=== PATIENT | male | born 1975 | race Caucasian/White ===

== ENCOUNTER 2022-12-29 15:16 | Emergency (ER) | payer OTHER, MEDICAID, SELFPAY ==
[2022-12-29] VITALS (7 sets, daily range): BP systolic 154–177; BP diastolic 88–112; PULSE 70–81; RESP 15–26; TEMP 36.9; O2SAT 96–98; BMI 38.0
--- NOTE | 2022-12-29 15:45 | DI.RAD.S_ITS ---
PROCEDURE: XR CHEST 1V INDICATIONS: hypertension TECHNIQUE: One view of the chest was acquired. COMPARISON: None. FINDINGS: Surgical changes and devices: None. Lungs and pleura: Lungs are clear. No pleural effusions or pneumothorax. Mediastinum: Mediastinal contours appear normal. Heart size is normal. Bones and chest wall: No suspicious bony lesions. Overlying soft tissues appear unremarkable. IMPRESSION: Normal for age, source of current hypertension symptoms is not seen. Dictated by: Joey Lucia M.D. on 12/29/2022 at 16:45 Approved by: Joey Lucia M.D. on 12/29/2022 at 16:45
[2022-12-29 17:02] LABS: Add Manual Diff / Slide Review NO; Basophils Absolute Auto 100 /uL (0-100); Basophils Percent Auto 1.3 % (0-2); Eosinophils Absolute Auto 100 /uL (0-450); Hematocrit 41.8 % (41-53); Hemoglobin 14.6 g/dL (13.5-17.5); Lymphocytes Absolute Auto 1700 /uL (1100-4500); Lymphocytes Percent Auto 34.6 % (25-40); Mean Corpuscular HGB Conc 35.1 % (30-36); Mean Corpuscular Volume 88.4 fL (80-100); Monocytes Absolute Auto 400 /uL (0-900); Monocytes Percent Auto 8.5 % (3-14); Neutrophils Absolute Auto 2600 /uL (1500-7000); Neutrophils Percent Auto 53.6 % (50-75); Platelet Count 227 X10^3/uL (150-400); Red Blood Cell Count 4.73 X10^6/uL (4.5-5.9); White Blood Cell Count 4.9 X10^3/uL (4.5-11.0)
[2022-12-29 17:03] LABS: Creatine Kinase 153 U/L (55-170)
--- NOTE | 2022-12-29 17:07 | PC.NURSE ---
Pt states he moved here approx a week ago to live with his mother. He has been checking his BP daily with her device and noted it was high. Has an appointment with a new PCP in five days, but his mother wanted him to be seen today. Pt also has +2 pitting edema of BLEs which he reports started a few days ago. States he went to walk-in clinic but was told he had to come to ED for treatment.
[2022-12-29 17:13] LABS: NT-proBNP (BNP-Adult 18+) 27 pg/mL (<125)
[2022-12-29 17:15] LABS: Troponin I < 0.012 ng/mL (0.01-0.034)
[2022-12-29 17:38] LABS: Alanine Aminotransferase 56 IU/L (<50); Albumin 4.2 g/dL (3.5-5.0); Albumin Globulin Ratio 1.3 (1.0-2.8); Alkaline Phosphatase 83 U/L (38-126); Aspartate Aminotransferase 38 IU/L (17-59); Bilirubin Total 0.5 mg/dL (0.2-1.3); Blood Urea Nitrogen 18 mg/dL (9-20); Carbon Dioxide 26 mmol/L (22-32); Chloride 102 mmol/L (98-107); Estimated Glomerular Filt Rate > 60 mL/min (>60); Globulin 3.2 g/dL (1.7-4.1); Glucose 105 mg/dL (70-100); HEMOLYSIS 24 (0-50); Potassium 4.1 mmol/L (3.4-5.1); Sodium 136 mmol/L (137-145); Total Protein 7.4 g/dL (6.3-8.2)
--- NOTE | 2022-12-29 18:18 | ED.GENADULT ---
HPI - General Adult General Chief complaint: Hypertension Stated complaint: pitting edema in feet/high BP Time Seen by Provider: 12/29/22 18:11 Source: patient Mode of arrival: Ambulatory History of Present Illness HPI narrative: 47M nonsmoker with history of hypertension presents with a chief complaint of elevated blood pressure. He has been working on establishing care with a primary care provider and has an appointment next week. He is had a history of hypertension for some time but used to control it with diet and exercise but since moving up here and living with his mom he no longer has quite as much access to exercise equipment and has admittedly changed his diet a bit. He denies any headache or blurred vision. He has no chest pain, shortness of breath or cough. He denies abdominal pain or diarrhea. He does have occasional swelling in pain in his feet but denies any significant complaints currently. Related Data Previous Rx's Medication Instructions Recorded amlodipine 5 mg tablet 5 mg PO DAILY #30 tabs 12/29/22 Allergies Allergy/AdvReac Type Severity Reaction Status Date / Time No Known Drug Allergies Allergy Verified 12/29/22 15:24 Review of Systems Review of Systems Narrative: GENERAL: Denies chills, fatigue, malaise, fever, sweats. HEENT: Denies sinus pain, ear pain, sore throat, difficulty swallowing, dizziness. RESPIRATORY: Denies dyspnea, cough, wheezing, hemoptysis, sputum. CARDIOVASCULAR: Denies chest pain, palpitations, orthopnea, edema, GASTROINTESTINAL: Denies nausea, vomiting, abdominal pain, diarrhea, constipation, melena. : Denies dysuria, frequency, incontinence, hematuria, urinary retention. MUSCULOSKELETAL: See HPI SKIN: Denies rash, skin lesions, or other NEUROLOGIC: Denies weakness, headache, numbness, change in speech, confusion, seizures, incoordination. PSYCHIATRIC: No concerning psychosocial issues. 12 point review of systems is negative except for those stated above Patient History Social History Smoking Status: Former smoker Smoking Status: Former smoker Substance Use Type: does not use Exam Narrative Exam Narrative: GENERAL: [47] year old patient appears stated age. Well-developed patient, in mild distress. HEAD: Atraumatic. Normocephalic. EYES: Pupils equal round and reactive. Extraocular motions intact. No scleral icterus. No injection or drainage. ENT: Nose without bleeding, purulent drainage. Throat without erythema, tonsillar hypertrophy or exudate. Airway patent. NECK: Trachea midline. Non tender CARDIOVASCULAR: Regular rate and rhythm without murmurs, gallops, or rubs. RESPIRATORY: Clear to auscultation. Breath sounds equal bilaterally. No wheezes, rales, or rhonchi. GASTROINTESTINAL: Abdomen soft, non-tender, nondistended. EXTREMITIES: No edema or joint tenderness. BACK: Nontender without deformity or crepitance. No flank tenderness. NEURO: AOx3. SKIN: No rash or erythema of visible areas Initial Vital Signs Initial Vital Signs: Vital Signs Temperature 98.4 F 12/29/22 15:24 Pulse Rate 81 12/29/22 15:24 Respiratory Rate 16 12/29/22 15:24 Blood Pressure 159/103 H 12/29/22 15:24 Pulse Oximetry 97 12/29/22 15:24 Oxygen Delivery Method Room Air 12/29/22 15:24 Course Orders Ordered: ED Orders 12/29/22 16:25 BNP [NT-proBNP (BNP-Adult 18+)] Stat CBC Auto Diff [Complete Blood Count AUTO DIFF] Stat CMP [Comprehensive Metabolic Panel] Stat Troponin & CK Cardiac Panel Stat 12/29/22 16:31 EKG-12 Lead Stat Vital Signs Vital signs: Vital Signs - 8 hr 12/29/22 17:00 12/29/22 17:00 12/29/22 17:30 Pulse Rate 74 Respiratory Rate 26 H Blood Pressure 158/99 H 161/88 H Pulse Oximetry 96 Oxygen Delivery Method 12/29/22 17:30 12/29/22 18:00 12/29/22 18:00 Pulse Rate 77 76 Respiratory Rate 20 Blood Pressure 177/112 H Pulse Oximetry 98 98 Oxygen Delivery Method Room Air 12/29/22 18:30 12/29/22 18:30 12/29/22 18:58 Pulse Rate 70 75 Respiratory Rate 15 18 Blood Pressure 154/91 H 154/91 H Pulse Oximetry 96 98 Oxygen Delivery Method Room Air Medical Decision Making Lab Data 12/29/22 16:25 12/29/22 16:25 Labs: Lab Results 12/29/22 12/29/22 12/29/22 Range/Units 16:25 16:25 16:25 WBC 4.9 (4.5-11.0) X10^3/uL RBC 4.73 (4.5-5.9) X10^6/uL Hgb 14.6 (13.5-17.5) g/dL Hct 41.8 (41-53) % MCV 88.4 (80-100) fL MCH 31.0 (26-34) PG MCHC 35.1 (30-36) % RDW 13.0 (11.6-14.8) % Plt Count 227 (150-400) X10^3/uL Neut % (Auto) 53.6 (50-75) % Lymph % (Auto) 34.6 (25-40) % [place] % (Auto) 8.5 (3-14) % Eos % (Auto) 2.0 (2-4) % Baso % (Auto) 1.3 (0-2) % Neut # (Auto) 2600 (1933-9199) /uL Lymph # (Auto) 1700 (5910-2108) /uL [place] # (Auto) 400 (0-900) /uL Eos # (Auto) 100 (0-450) /uL Baso # (Auto) 100 (0-100) /uL Sodium 136 L (137-145) mmol/L Potassium 4.1 (3.4-5.1) mmol/L Chloride 102 (98-107) mmol/L Carbon Dioxide 26 (22-32) mmol/L BUN 18 (9-20) mg/dL Creatinine 1.00 (0.66-1.25) mg/dL Estimated GFR > 60 (>60) mL/min BUN/Creatinine Ratio 18.0 (6-22) Glucose 105 H (70-100) mg/dL Calcium 9.0 (8.4-10.2) mg/dL Total Bilirubin 0.5 (0.2-1.3) mg/dL AST 38 (17-59) IU/L ALT 56 H (<50) IU/L Alkaline Phosphatase 83 (38-126) U/L Total Creatine Kinase 153 (55-170) U/L Troponin I < 0.012 (0.01-0.034) ng/mL NT-Pro-B Natriuret Pep (<125) pg/mL Total Protein 7.4 (6.3-8.2) g/dL Albumin 4.2 (3.5-5.0) g/dL Globulin 3.2 (1.7-4.1) g/dL Albumin/Globulin Ratio 1.3 (1.0-2.8) 12/29/22 Range/Units 16:25 WBC (4.5-11.0) X10^3/uL RBC (4.5-5.9) X10^6/uL Hgb (13.5-17.5) g/dL Hct (41-53) % MCV (80-100) fL MCH (26-34) PG MCHC (30-36) % RDW (11.6-14.8) % Plt Count (150-400) X10^3/uL Neut % (Auto) (50-75) % Lymph % (Auto) (25-40) % [place] % (Auto) (3-14) % Eos % (Auto) (2-4) % Baso % (Auto) (0-2) % Neut # (Auto) (2311-1983) /uL Lymph # (Auto) (1856-5626) /uL [place] # (Auto) (0-900) /uL Eos # (Auto) (0-450) /uL Baso # (Auto) (0-100) /uL Sodium (137-145) mmol/L Potassium (3.4-5.1) mmol/L Chloride (98-107) mmol/L Carbon Dioxide (22-32) mmol/L BUN (9-20) mg/dL Creatinine (0.66-1.25) mg/dL Estimated GFR (>60) mL/min BUN/Creatinine Ratio (6-22) Glucose (70-100) mg/dL Calcium (8.4-10.2) mg/dL Total Bilirubin (0.2-1.3) mg/dL AST (17-59) IU/L ALT (<50) IU/L Alkaline Phosphatase (38-126) U/L Total Creatine Kinase (55-170) U/L Troponin I (0.01-0.034) ng/mL NT-Pro-B Natriuret Pep 27 (<125) pg/mL Total Protein (6.3-8.2) g/dL Albumin (3.5-5.0) g/dL Globulin (1.7-4.1) g/dL Albumin/Globulin Ratio (1.0-2.8) Urine Dip Bedside Urine Glucose Negative Bedside Urine Bilirubin - Negative Bedside Urine Ketone - Negative Urine Specific [place] 1.015 Bedside Urine Occult Blood - Negative Bedside Urine pH 5.5 Bedside Urine Protein - Negative Bedside Urine Urobilinogen - Negative Bedside Urine Nitrite - Negative Bedside Urine Leukocytes - Negative Esterase Point of care testing: Urine Dip Bedside Urine Glucose Negative Bedside Urine Bilirubin - Negative Bedside Urine Ketone - Negative Urine Specific [place] 1.015 Bedside Urine Occult Blood - Negative Bedside Urine pH 5.5 Bedside Urine Protein - Negative Bedside Urine Urobilinogen - Negative Bedside Urine Nitrite - Negative Bedside Urine Leukocytes - Negative Esterase MDM Narrative Medical decision making narrative: [47] year old patient presents with hypertension Prior Charts reviewed in our EMR Primary Historian: patient Labs reviewed and interpreted by myself: No significant abnormalities requiring specific intervention Imaging reviewed: No acute findings Patient's symptoms improved over duration of stay with above-stated therapies. Findings and discharge diagnosis discussed with patient/family followed by verbalization of understanding Return precautions discussed with patient/family whom verbalize understanding of diagnosis and plan Discharge Plan Departure Patient Disposition: Home Clinical Impression: Hypertension Instructions: DI for High Blood Pressure Activity Restrictions/Additional Instructions: *You have been diagnosed with [hypertension] *What to do: *Please continue to take your regular medications as directed. [ x] New medication prescriptions sent to your pharmacy: [ [facility]] [ ] New medication written as a paper prescription [ ] No new medications given *Please follow up with your primary care provider next week as planned. Let them know you were seen in the Emergency Department *Return to Emergency Department if you should have any new, worsening or concerning symptoms, such as [fever greater than 101 F, shaking chills, worsening pain, persistent vomiting or other bothersome symptoms] Prescriptions: New amlodipine 5 mg tablet 5 mg PO DAILY Qty: 30 0RF Referrals: Miscellaneous,Doctor, [Primary Care Provider] - Stand Alone Forms: Patient Portal/API
== END 2022-12-29 18:58 | disposition home or self-care (01) ==
PROVIDERS: Emergency Medicine; Emergency Provider Emergency Medicine
DX: I10 Essential (primary) hypertension (principal)
CPT/HCPCS: 71045; 80053; 81003; 82550; 83880; 84484; 85025; 93005; 93010; 99283; 99284

== ENCOUNTER → 2024-09-24 12:02 | Outpatient (CLI) | payer OTHER, SELFPAY ==
[2024-09-24 12:53] LABS: Hemoglobin A1C% w Est Avg Glu 11.4 % (4.0-6.0)
[2024-09-24 13:07] LABS: Alanine Aminotransferase 37 IU/L (<50); Albumin 4.8 g/dL (3.5-5.0); Albumin Globulin Ratio 1.7 (1.0-2.8); Alkaline Phosphatase 112 U/L (38-126); Aspartate Aminotransferase 30 IU/L (17-59); Bilirubin Total 1.1 mg/dL (0.2-1.3); Blood Urea Nitrogen 27 mg/dL (9-20); Carbon Dioxide 28 mmol/L (22-32); Chloride 86 mmol/L (98-107); Cholesterol 187 mg/dL (140-199); Estimated Glomerular Filt Rate > 60 mL/min (>60); Globulin 2.9 g/dL (1.7-4.1); HDL Cholesterol 34 mg/dL (40-60); HEMOLYSIS < 15 (0-50); Potassium 3.5 mmol/L (3.4-5.1); Sodium 130 mmol/L (137-145); Total Protein 7.7 g/dL (6.3-8.2)
[2024-09-24 13:10] LABS: Glucose 614 mg/dL (70-100)
[2024-09-24 13:15] LABS: Triglycerides 605 mg/dL (35-150)
[2024-09-24 14:18] LABS: Add Manual Diff / Slide Review NO; Basophils Absolute Auto 0 /uL (0-100); Basophils Percent Auto 0.4 % (0-2); Eosinophils Absolute Auto 0 /uL (0-450); Eosinophils Percent Auto 0.7 % (2-4); Hematocrit 47.9 % (41-53); Hemoglobin 16.7 g/dL (13.5-17.5); Lymphocytes Absolute Auto 1700 /uL (1100-4500); Lymphocytes Percent Auto 26.6 % (25-40); Mean Corpuscular HGB Conc 34.8 % (30-36); Mean Corpuscular Hemoglobin 30.2 PG (26-34); Mean Corpuscular Volume 86.7 fL (80-100); Monocytes Absolute Auto 500 /uL (0-900); Monocytes Percent Auto 7.6 % (3-14); Neutrophils Absolute Auto 4100 /uL (1500-7000); Neutrophils Percent Auto 64.7 % (50-75); Platelet Count 271 X10^3/uL (150-400); Red Blood Cell Count 5.52 X10^6/uL (4.5-5.9); White Blood Cell Count 6.3 X10^3/uL (4.5-11.0)
[2024-09-25 23:31] LABS: HIV 1 & 2 Ab/Ag 4th Gen Combo NEGATIVE (NEGATIVE); Hep C Virus Ab w/Reflex Quant NEGATIVE s/c (NEGATIVE)
== END ==
LOC: LAB 12:03
PROVIDERS: PCP Family Medicine; Referring Provider Family Medicine; Visit Provider Family Medicine
DX: Z00.00 Encounter for general adult medical examination without abnormal findings (principal); Z11.59 Encounter for screening for other viral diseases; H92.02 Otalgia, left ear; I10 Essential (primary) hypertension; Z11.4 Encounter for screening for human immunodeficiency virus [HIV]; R63.4 Abnormal weight loss
CPT/HCPCS: 36415; 80053; 80061; 83036; 85025; 86803; 87389

== ENCOUNTER 2024-09-25 20:12 | Emergency (ER) | payer OTHER, SELFPAY ==
[2024-09-25 20:31] VITALS: BP 142/93; PULSE 88; RESP 18; TEMP 36.1; O2SAT 95
[2024-09-25 20:46] LABS: Add Manual Diff / Slide Review NO; Basophils Absolute Auto 0 /uL (0-100); Eosinophils Absolute Auto 100 /uL (0-450); Eosinophils Percent Auto 1.1 % (2-4); Hematocrit 45.6 % (41-53); Lymphocytes Absolute Auto 1800 /uL (1100-4500); Lymphocytes Percent Auto 37.4 % (25-40); Mean Corpuscular HGB Conc 35.1 % (30-36); Mean Corpuscular Hemoglobin 30.2 PG (26-34); Mean Corpuscular Volume 86.1 fL (80-100); Monocytes Absolute Auto 400 /uL (0-900); Neutrophils Absolute Auto 2600 /uL (1500-7000); Neutrophils Percent Auto 51.5 % (50-75); Platelet Count 238 X10^3/uL (150-400); Red Blood Cell Count 5.29 X10^6/uL (4.5-5.9); Red Cell Distribution Width 12.8 % (11.6-14.8); White Blood Cell Count 4.9 X10^3/uL (4.5-11.0)
[2024-09-25 20:46] LABS: Base Excess VBG 8.9 mmol/L (0-4); HCO3 VBG 31 mmol/L (24-28); Oxygen Saturation VBG 94 % (70-75); PCO2 VBG 33.6 mmHg (45-50); PO2 VBG 58 mmHg (35-45); Total CO2 VBG 30 mmol/L (24-29); pH VBG 7.57 (7.33-7.43)
[2024-09-25 21:03] LABS: Alanine Aminotransferase 34 IU/L (<50); Albumin 4.5 g/dL (3.5-5.0); Albumin Globulin Ratio 1.3 (1.0-2.8); Alkaline Phosphatase 98 U/L (38-126); Aspartate Aminotransferase 32 IU/L (17-59); BUN Creatinine Ratio 28.8 (6-22); Bilirubin Total 0.9 mg/dL (0.2-1.3); Blood Urea Nitrogen 36 mg/dL (9-20); Calcium 8.9 mg/dL (8.4-10.2); Carbon Dioxide 29 mmol/L (22-32); Chloride 84 mmol/L (98-107); Estimated Glomerular Filt Rate > 60 mL/min (>60); Globulin 3.4 g/dL (1.7-4.1); HEMOLYSIS 40 (0-50); Sodium 126 mmol/L (137-145); Total Protein 7.9 g/dL (6.3-8.2)
[2024-09-25 21:10] LABS: Ketones (Beta-Hydroxybutyrate) 0.65 mmol/L (<0.27)
[2024-09-25 21:14] LABS: Glucose 618 mg/dL (70-100)
[2024-09-26] MEDS: SODIUM CHLORIDE 0.9% 1,000 ML 1000 ML IV (01:31)
[2024-09-26 02:50] VITALS: BP 134/70; PULSE 69; RESP 19; O2SAT 95
--- NOTE | 2024-09-26 02:58 | ED_ITS ---
HPI - General Adult General Chief complaint: Diabetic Problem Stated complaint: abn labs, Blood Glucose over 600 Time Seen by Provider: 09/26/24 01:20 Source: patient Mode of arrival: Ambulatory History of Present Illness HPI narrative: Patient is a 48-year-old male newly diagnosed type 2 diabetes presenting today with a elevated glucose. He saw his primary care provider twice this week September 24 and September 25 he was prescribed insulin Lantus let us glucose monitor test strips. However he reports he was not prescribed the needles for the insulin, he reports he was also told he was getting metformin which is listed in the note but he was not prescribed metformin. He is nervous because his glucose is so high. He was no chest pain no shortness of breath no nausea or vomiting. He reports excessive thirst ongoing for the last couple of weeks. He really just wants to be able to start his medication he was quite informed Related Data Previous Rx's Medication Instructions Recorded c-pap supplies #1 ea 09/26/23 bupropion HCl 300 mg 24 hr tablet, 300 mg PO QAM #90 tabs 04/30/24 extended release (Wellbutrin XL) amlodipine 10 mg tablet (Norvasc) 10 mg PO DAILY #90 tabs 07/16/24 sertraline 100 mg tablet (Zoloft) 100 mg PO DAILY #90 tabs 07/16/24 blood sugar diagnostic (Blood #100 ea 09/25/24 Glucose Test strips) blood-glucose meter (Blood Glucose #1 ea 09/25/24 Monitoring kit) dapagliflozin propanediol 5 mg 5 mg PO DAILY #90 tabs 09/25/24 tablet (Farxiga) insulin glargine 100 unit/mL (3 10 unit (0.1 mL) SUBCUT QPM #3 mL 09/25/24 mL) subcutaneous pen (Lantus Solostar U-100 Insulin) lancets 30 gauge #100 ea 09/25/24 losartan 25 mg tablet 25 mg PO DAILY blood pressure #90 09/25/24 tabs rosuvastatin 10 mg tablet (Crestor) 10 mg PO DAILY #90 tabs 09/25/24 Allergies Allergy/AdvReac Type Severity Reaction Status Date / Time No Known Drug Allergies Allergy Verified 09/25/24 11:37 Patient History Medical History Mixed hyperlipidemia Type 2 diabetes mellitus with kidney complication, with long-term current use of insulin REJI (generalized anxiety disorder) Depression, unspecified Benign essential HTN COLE on CPAP Social History Smoking Status: Former smoker Smoking Status: Former smoker Exam Initial Vital Signs Initial Vital Signs: Vital Signs Temperature 97 F L 09/25/24 20:31 Pulse Rate 88 09/25/24 20:31 Respiratory Rate 18 09/25/24 20:31 Blood Pressure 142/93 H 09/25/24 20:31 Pulse Oximetry 95 09/25/24 20:31 Oxygen Delivery Method Room Air 09/25/24 20:31 GENERAL: Alert well-appearing 88-year-old male and in no acute distress. HEENT: Head atraumatic,EOMI, pupils reactive, face symmetric, moist mucous membranes CARDIOVASCULAR: Regular rate and rhythm without murmurs, rubs or gallops. RESPIRATORY: Breath sounds equal bilaterally, no wheezes rales or rhonchi. ABDOMEN: Soft, nontender. Normoactive bowel sounds all 4 quadrants. No guarding or rebound. EXTREMITIES: Normal range of motion, no clubbing or edema. Neurovascularly intact NEUROLOGICAL: Alert and oriented x4.Normal gait and speech. Cranial nerves II through XII grossly intact. SKIN: Warm, dry, no laceration, no petechiae, no rashes or lesions. Course Orders Ordered: ED Orders 09/25/24 20:36 Complete Blood Count AUTO DIFF Stat Comprehensive Metabolic Panel Stat Ketones (Beta-Hydroxybutyrate) Stat VBG [Venous Blood Gas] STAT 09/25/24 20:44 Venous Blood Gas Routine Discontinued Medications Sodium Chloride (Normal Saline 0.9%) 1,000 mls @ 1,000 mls/hr IV BOLUS ONE Stop: 09/26/24 02:19 Last Infusion: 09/26/24 02:38 Dose: Infused Documented By: Admin: 09/26/24 01:31 Dose: 1,000 mls/hr Documented By: DAYANA Insulin Human Regular (Insulin Regular 100 Unit/Ml 3 Ml Vial) 5 unit SUBCUT NOW ONE Stop: 09/26/24 03:14 Last Admin: 09/26/24 03:24 Dose: 5 unit Documented By: DAYANA Co-signed By: Metformin HCl (Metformin Hcl 500 Mg Tablet) 500 mg PO NOW ONE Stop: 09/26/24 03:15 Last Admin: 09/26/24 03:28 Dose: 500 mg Documented By: LS Vital Signs Vital signs: Vital Signs - 8 hr 09/26/24 02:50 09/26/24 03:25 Pulse Rate 69 70 Respiratory Rate 19 11 L Blood Pressure 134/70 116/76 Pulse Oximetry 95 95 Oxygen Delivery Method Room Air Room Air Medical Decision Making Lab Data 09/25/24 20:36 09/25/24 20:36 Labs: Lab Results 09/25/24 09/25/24 Range/Units 20:36 20:44 WBC 4.9 (4.5-11.0) X10^3/uL RBC 5.29 (4.5-5.9) X10^6/uL Hgb 16.0 (13.5-17.5) g/dL Hct 45.6 (41-53) % MCV 86.1 (80-100) fL MCH 30.2 (26-34) PG MCHC 35.1 (30-36) % RDW 12.8 (11.6-14.8) % Plt Count 238 (150-400) X10^3/uL Neut % (Auto) 51.5 (50-75) % Lymph % (Auto) 37.4 (25-40) % [place] % (Auto) 9.0 (3-14) % Eos % (Auto) 1.1 L (2-4) % Baso % (Auto) 1.0 (0-2) % Neut # (Auto) 2600 (5717-9718) /uL Lymph # (Auto) 1800 (9848-6764) /uL [place] # (Auto) 400 (0-900) /uL Eos # (Auto) 100 (0-450) /uL Baso # (Auto) 0 (0-100) /uL VBG pH 7.57 H (7.33-7.43) VBG pCO2 33.6 L (45-50) mmHg VBG pO2 58 H (35-45) mmHg VBG HCO3 31 H (24-28) mmol/L VBG Total CO2 30 H (24-29) mmol/L VBG O2 Saturation 94 H (70-75) % VBG Base Excess 8.9 H (0-4) mmol/L FiO2 % 21.0 % % Sodium 126 L (137-145) mmol/L Potassium 3.0 L (3.4-5.1) mmol/L Chloride 84 L (98-107) mmol/L Carbon Dioxide 29 (22-32) mmol/L BUN 36 H (9-20) mg/dL Creatinine 1.25 (0.66-1.25) mg/dL Estimated GFR > 60 (>60) mL/min BUN/Creatinine Ratio 28.8 H (6-22) Glucose 618 H* (70-100) mg/dL Calcium 8.9 (8.4-10.2) mg/dL Total Bilirubin 0.9 (0.2-1.3) mg/dL AST 32 (17-59) IU/L ALT 34 (<50) IU/L Alkaline Phosphatase 98 (38-126) U/L Total Protein 7.9 (6.3-8.2) g/dL Albumin 4.5 (3.5-5.0) g/dL Globulin 3.4 (1.7-4.1) g/dL Albumin/Globulin Ratio 1.3 (1.0-2.8) Ketones 0.65 H (<0.27) mmol/L Point of Care Testing Glucose POC 464 Urine Dip Bedside Urine Glucose 1000 mg/dl Bedside Urine Bilirubin - Negative Bedside Urine Ketone + 15 Urine Specific [place] 1.015 Bedside Urine Occult Blood +/- Bedside Urine pH 5.5 Bedside Urine Protein - Negative Bedside Urine Urobilinogen - Negative Bedside Urine Nitrite - Negative Bedside Urine Leukocytes - Negative Esterase Point of care testing: Point of Care Testing Glucose POC 464 Urine Dip Bedside Urine Glucose 1000 mg/dl Bedside Urine Bilirubin - Negative Bedside Urine Ketone + 15 Urine Specific [place] 1.015 Bedside Urine Occult Blood +/- Bedside Urine pH 5.5 Bedside Urine Protein - Negative Bedside Urine Urobilinogen - Negative Bedside Urine Nitrite - Negative Bedside Urine Leukocytes - Negative Esterase [facility] Narrative Medical decision making narrative: Patient 48-year-old male newly diagnosed diabetic presenting today with hyperglycemia. Glucose is 618. However no evidence of DKA venous pH is 7.57, anion gap 13. He was found to be hyponatremic sodium 126 which corrects for hyperglycemia at 1:34 a.m.. Mild hypokalemia as well with a potassium of 3.0. Creatinine is 1.25 At this time patient has hyperglycemia without complication. He has no chest pain. Mostly concerned that his PCP did not write him for all the supplies medication that he was told he was going to. Pharmacy also did not have all with the medication in stock he will have to go back to pharmacy tomorrow he is already called his primary care. He was given 1 L of normal saline in the ED along with 1st dose of metformin and 5 units of insulin Discharge Plan Departure Patient Disposition: Home Clinical Impression: Diabetes Instructions: DI for Diabetes Type 2 Activity Restrictions/Additional Instructions: *You have been diagnosed with diabetes *What to do: At this time I your primary should right you for the rest of your supplies am sorry this happened to you. Your sugar is coming down nicely here in the ED *Continue to take medications as directed *Follow up with your primary care provider in 2-3 days or call [phone] *Return to ER if you should have any new, worsening or concerning symptoms Prescriptions: No Action bupropion HCl [Wellbutrin XL] 300 mg tablet extended release 24 hr 300 mg PO QAM Qty: 90 1RF amlodipine [Norvasc] 10 mg tablet 10 mg PO DAILY Qty: 90 0RF sertraline [Zoloft] 100 mg tablet 100 mg PO DAILY Qty: 90 0RF (DME) blood-glucose meter [Blood Glucose Monitoring] Kit See Rx Instructions .ROUTE .MEDSUPPLY Qty: 1 1RF Rx Instructions: Use to check blood sugar twice daily as directed by physician (DME) lancets 30 gauge misc See Rx Instructions .ROUTE .MEDSUPPLY Qty: 100 11RF Rx Instructions: Use to check blood sugar twice daily as directed by physician (DME) Blood Glucose Test Strip See Rx Instructions .ROUTE .MEDSUPPLY Qty: 100 11RF Rx Instructions: Use to check blood sugar twice daily as directed by physician (DME) c-pap supplies See Rx Instructions .Route .MEDSUPPLY Qty: 1 0RF Rx Instructions: Cpap mask, supplies and tubing. losartan 25 mg tablet 25 mg PO DAILY Qty: 90 3RF rosuvastatin [Crestor] 10 mg tablet 10 mg PO DAILY Qty: 90 3RF insulin glargine [Lantus Solostar U-100 Insulin] 100 unit/mL (3 mL) insulin pen 10 unit SUBCUT QPM Qty: 3 11RF dapagliflozin propanediol [Farxiga] 5 mg tablet 5 mg PO DAILY Qty: 90 3RF Referrals: Yuniel Stephens DO [Primary Care Provider] - Stand Alone Forms: Patient Portal/API/Survey
[2024-09-26] MEDS: INSULIN REGULAR 100 UNIT/ML 3 ML VIAL SUBCUT (03:24)
[2024-09-26 03:25] VITALS: BP 116/76; PULSE 70; RESP 11; O2SAT 95
[2024-09-26] MEDS: METFORMIN HCL 500 MG TABLET PO (03:28)
== END 2024-09-26 03:38 | disposition home or self-care (01) ==
PROVIDERS: Emergency Provider Emergency Medicine; PCP Family Medicine
DX: E11.65 Type 2 diabetes mellitus with hyperglycemia (principal); E87.6 Hypokalemia
CPT/HCPCS: 36415; 80053; 81003; 82009; 82805; 82962; 85025; 96360; 96372; 99284

== ENCOUNTER → 2024-10-28 12:03 | Outpatient (CLI) | payer OTHER, SELFPAY ==
[2024-10-28 12:59] LABS: BUN Creatinine Ratio 22.3 (6-22); Blood Urea Nitrogen 27 mg/dL (9-20); Calcium 9.6 mg/dL (8.4-10.2); Carbon Dioxide 30 mmol/L (22-32); Chloride 103 mmol/L (98-107); Estimated Glomerular Filt Rate > 60 mL/min (>60); Glucose 95 mg/dL (70-99); HEMOLYSIS < 15 (0-50); Potassium 4.2 mmol/L (3.4-5.1); Sodium 144 mmol/L (137-145)
[2024-10-28 16:46] LABS: Creatinine Urine Random 142.85 mg/dL
[2024-10-29 04:36] LABS: Fructosamine 261 umol/L (0-285)
== END ==
PROVIDERS: PCP Family Medicine; Referring Provider Family Medicine; Visit Provider Family Medicine
DX: E11.29 Type 2 diabetes mellitus with other diabetic kidney complication (principal); I10 Essential (primary) hypertension; Z79.4 Long term (current) use of insulin
CPT/HCPCS: 36415; 80048; 82043; 82570; 82985

== ENCOUNTER → 2025-05-26 10:17 | Outpatient (CLI) | payer OTHER, SELFPAY | PROVIDERS: PCP Family Medicine; Visit Provider Family Medicine | DX: K05.219 Aggressive periodontitis, localized, unspecified severity (principal) | CPT/HCPCS: 87070; 87205 ==

== ENCOUNTER → 2025-05-26 10:19 | Outpatient (CLI) | payer OTHER, SELFPAY ==
[2025-05-26 10:51] LABS: Hemoglobin A1C% w Est Avg Glu 5.4 % (4.0-6.0)
[2025-05-26 11:09] LABS: Blood Urea Nitrogen 21 mg/dL (9-20); Calcium 9.3 mg/dL (8.4-10.2); Carbon Dioxide 28 mmol/L (22-32); Chloride 104 mmol/L (98-107); Cholesterol 88 mg/dL (140-199); Estimated Glomerular Filt Rate > 60 mL/min (>60); Glucose 109 mg/dL (70-99); HDL Cholesterol 38 mg/dL (40-60); HEMOLYSIS < 15 (0-50); Potassium 4.6 mmol/L (3.4-5.1); Sodium 141 mmol/L (137-145); Triglycerides 112 mg/dL (35-150)
== END ==
PROVIDERS: PCP Family Medicine; Referring Provider Family Medicine; Visit Provider Family Medicine
DX: E11.22 Type 2 diabetes mellitus with diabetic chronic kidney disease (principal); I12.9 Hypertensive chronic kidney disease with stage 1 through stage 4 chronic kidney disease, or unspecified chronic kidney disease; N18.9 Chronic kidney disease, unspecified; K05.219 Aggressive periodontitis, localized, unspecified severity; E78.2 Mixed hyperlipidemia; Z79.4 Long term (current) use of insulin
CPT/HCPCS: 36415; 80048; 80061; 83036; 87070; 87205